=== PATIENT | female | born 1980 | race Caucasian/White ===

== ENCOUNTER 2017-03-25 20:28 | Outpatient (CLI) | payer SELFPAY ==
[2017-03-25 20:46] VITALS: BP 119/71
--- NOTE | 2017-03-25 23:03 | Ultrasound Report ---
FINAL REPORT PROCEDURE: US OB BPP WO NON-STRESS TECHNIQUE: Real-time limited sonographic examination was performed for evaluation of size, position, heartbeat, fluid volume for each fetus with image documentation (1 or more fetuses). CPT 04926 HISTORY: DECREASED MOVEMENT COMPARISON: No prior studies are available for comparison. FINDINGS: biophysical profile: breathing movements: 2. movements: 2. posterior and tone: 2. Qualitative amniotic fluid volume: 2. Total score: 8/8. heart rate 175 beats per minute. IMPRESSION: Normal biophysical profile.
== END 2017-03-25 22:41 | disposition home or self-care (01) ==
LOC: TRG 20:28
PROVIDERS: ATTEND Obstetrics & Gynecology
DX: O48.0 Post-term pregnancy (principal); Z3A.40 40 weeks gestation of pregnancy
CPT/HCPCS: 76819

== ENCOUNTER 2017-03-29 20:47 | Outpatient (CLI) | payer SELFPAY ==
--- NOTE | 2017-03-29 22:53 | Ultrasound Report ---
FINAL REPORT PROCEDURE: US OB BPP WO NON-STRESS TECHNIQUE: Sonographic evaluation for breathing, movement, tone, and amniotic fluid volume was performed. CPT 64101 HISTORY: LIMITED PNC, WELLBEING COMPARISON: No prior studies are available for comparison. FINDINGS: Amniotic fluid volume: Normal-score 2. At least one vertical pocket > 2 cm or more in vertical axis. breathing: Normal-score 2. movement: Normal-score 2. tone: Normal-score 2 Score: 8 of 8. heart rate is 160 beats per minute IMPRESSION: Normal biophysical profile.
[2017-03-29 23:47] VITALS: BP 128/78
== END 2017-03-29 22:35 | disposition home or self-care (01) ==
LOC: TRG 20:47
PROVIDERS: ATTEND Obstetrics & Gynecology Gynecology
DX: O09.523 Supervision of elderly multigravida, third trimester (principal); O48.0 Post-term pregnancy; Z3A.41 41 weeks gestation of pregnancy
CPT/HCPCS: 59025; 76819